=== PATIENT | female | born 1950 | race Caucasian/White ===

== ENCOUNTER 2021-01-21 14:15 | Emergency (ER) | payer MEDICARE, BC, SELFPAY ==
[2021-01-21] MEDS: Normal Saline 1,000 ML 1000 ML IV (14:20)
[2021-01-21 14:57] VITALS: BP 103/64; PULSE 66; RESP 18; TEMP 36.4; O2SAT 98
[2021-01-21] MEDS: Ondansetron 4 MG/2 ML VIAL IVP (15:10)
[2021-01-21 15:32] LABS: Abs Immature Grans 0.01 10^3/uL (0.0-0.06); Absolute Basophil Count 0.02 10^3/uL (0.0-0.2); Absolute Eosinophil Count 0.04 10^3/uL (0.0-0.7); Absolute Lymphocyte Count 1.05 10^3/uL (1.2-3.4); Absolute Monocyte Count 0.79 10^3/uL (0.1-0.8); Absolute Neutrophil Count 2.65 10^3/uL (1.2-6.7); Basophils % 0.4; Eosinophils % 0.9; HCT 37.7 % (36.0-46.0); HGB 12.5 g/dL (11.2-15.7); Immature Grans % 0.2; MCH 34.9 pg (27.0-33.0); MCHC 33.2 % (32.0-36.0); MCV 105.3 fL (80-95); MPV 10.4 fL (8.0-11.0); Monocytes % 17.3; Neutrophils % 58.2; Nucleated RBC 0 %; Platelet Count 147 10^3/uL (130-400); RBC 3.58 10^6/uL (3.93-5.22); RDW-SD 47.3 fL; WBC 4.56 10^3/uL (4.4-10.8)
[2021-01-21 15:34] LABS: Lactate 0.5 mmol/L (0.6-1.4)
--- NOTE | 2021-01-21 15:35 | ED.GENADUL_ITS ---
Discharge Plan Disposition Patient Disposition: HOME Condition: Stable Discharge Details Clinical Impression: Nausea & vomiting, Diarrhea Primary Care Provider: Rae,Local ED Provider: Neetu Garcia Home Meds and New Rx's Prescriptions: New ondansetron HCl [Zofran] 4 mg tablet 4 mg PO Q8H PRNQty: 10 RF: 0 Continued multivitamin Tablet 1 tab PO QAM RF: 0 niacin 50 mg Tablet 50 mg PO DAILY RF: 0 aspirin 81 mg Tablet,Delayed Release (Dr/Ec) 81 mg PO DAILY RF: 0 cyanocobalamin (vitamin B-12) [Vitamin B-12] 500 mcg Tablet 500 mcg PO DAILY RF: 0 omega-3 fatty acids Capsule 1,000 mg PO DAILY RF: 0 Calcium 600 + D(3) 600 mg calcium- 200 unit Capsule 1 cap PO DAILY RF: 0 red yeast rice 600 mg Capsule 600 mg PO DAILY RF: 0 vit A,C,P-Y2-oicg-vgz-pfs-lane 1,000 unit-300mg -100 unit-2 mg Tablet 1 tab PO DAILY RF: 0 ascorbic acid (vitamin C) [Vitamin C] 500 mg Tablet 500 mg PO DAILY RF: 0 Prevagen 1 tab PO DAILY RF: 0 Discharge Instructions Instructions: Acute Nausea and Vomiting (ED), Acute Diarrhea (ED) Additional Instructions: Zofran as needed for nausea and vomiting Gatorade, apple juice, Jell-O, clear liquid diet today, followed by bland diet tomorrow as tolerated Please return earlier with uncontrolled nausea, vomiting, diarrhea Talk to your doctor about performing colonoscopy as you have an area of narrowing on your CAT scan that should be reassessed Please bring the stool specimen back for evaluation I have listed a surgeon below which may schedule your colonoscopy Referrals: Curtis Raygoza MD [ CONSULTING PHYSICIAN] - Discharge Data Discharge Date/Time-TO BE ENTERED AT DEPARTURE: 01/21/21 19:40 Medical Decision Making <SIMIN Mahmood - Last Filed: 01/22/21 08:18> 70-year-old female history of cholecystectomy, full hysterectomy, presents for 2-day history of nausea, vomiting, diarrhea, now with pain around her umbilicus. Clinically she appears well, nontoxic. Will obtain IV access, obtain routine laboratory values including a lactate and obtain CT imaging of her abdomen and pelvis for further evaluation of her symptoms. Differential includes but not excluded to gastritis, small bowel obstruction diverticulitis, appendicitis, mesenteric adenitis, colitis, etc. given her HPI and examination, extremely low suspicion for ACS, will not pursue cardiac work-up. Will give IV fluid and Zofran and reassess. Lactate of 0.5. All other labs are pending at time of signout. Lab Data Lab results reviewed: Yes I reviewed the patient's lab results. Labs: PROCEDURE INFORMATION: Exam: XR Chest Exam date and time: 01/21/2021 2:10 PM Age: 61 years old Clinical indication: Other: Nausee TECHNIQUE: Imaging protocol: XR of the chest. Views: 1 view. COMPARISON: No relevant prior studies available. FINDINGS: Lungs: Unremarkable. No consolidation. Pleural spaces: Unremarkable. No pleural effusion. No pneumothorax. Heart/Mediastinum: Unremarkable. No cardiomegaly. Bones/joints: Unremarkable. IMPRESSION: No acute findings. <SIMIN Archer - Last Filed: 01/21/21 20:05> Care accepted in transfer from Regino Regalado PA-C at 1600 Patient appears symptomatically improved, she is resting comfortably in room without active vomiting her CT scan does show an area of narrowing in her colon, there is no evidence of bowel obstruction and patient's exam is inconsistent with bowel obstruction, she is able to move her bowels back she is having diarrhea Per radiologist interpretation She is on vomited since she is been in the emergency room She dehydrated, her BUN is 39 She is otherwise able to tolerate p.o. Given prescription for Zofran for home Return precautions discussed and patient expressed understanding Referral to surgery for colonoscopy in the outpatient setting HPI <SIMIN Mahmood - Last Filed: 01/22/21 08:18> General Mode of arrival: ambulatory . Date/Time Provider Initiated Documentation: 01/21/21 14:37 . Limitations to Documentation: no limitations . Information obtained by: patient . HPI Narrative: This is a 70-year-old female, past medical history that includes GERD, cholecystectomy, hysterectomy, presenting to the ER for 3-day history of nausea, vomiting, diarrhea, now with abdominal pain around her umbilicus over the past 8 hours, crampy in nature, 4 out of 10. Patient denies recent illness, sick contacts, bad food exposure. She denies fever, chest pain, shortness of breath, back pain, black tarry stools or bright red blood in her stools, dysuria or hematuria. Patient has not taken any vnxh-azm-hkitvfw medications for her symptoms. She has no additional questions or concerns at this time. Denies recent antibiotic use. Related Data Home Medications Medication Instructions Recorded Confirmed Calcium 600 + D(3) 1 cap PO DAILY 01/21/21 01/21/21 Prevagen 1 tab PO DAILY 01/21/21 ascorbic acid (vitamin C) [Vitamin 500 mg PO DAILY 01/21/21 01/21/21 C] aspirin 81 mg PO DAILY 01/21/21 01/21/21 cyanocobalamin (vitamin B-12) 500 mcg PO DAILY 01/21/21 01/21/21 [Vitamin B-12] multivitamin 1 tab PO QAM 01/21/21 01/21/21 niacin 50 mg PO DAILY 01/21/21 01/21/21 omega-3 fatty acids 1,000 mg PO DAILY 01/21/21 01/21/21 ondansetron HCl [Zofran] 4 mg PO Q8H PRN #10 tab 01/21/21 red yeast rice 600 mg PO DAILY 01/21/21 01/21/21 vit A,C,T-Y0-kegm-cni-tje-egxm 1 tab PO DAILY 01/21/21 01/21/21 Previous Rx's Medication Instructions Recorded ondansetron HCl [Zofran] 4 mg PO Q8H PRN #10 tab 01/21/21 Allergies Allergy/AdvReac Type Severity Reaction Status Date / Time No Known Allergies Allergy Unverified 01/21/21 15:02 General Stated Complaint: Nausea/Vomit/Diar PERRY: 3 Review of Systems <SIMIN Mahmood - Last Filed: 01/22/21 08:18> Constitutional Constitutional: Denies fever(s) ENT Ears, Nose, Mouth, and Throat: Denies neck pain Cardiovascular Cardiovascular: Denies chest pain and Denies dyspnea Respiratory Respiratory: Denies cough and Denies dyspnea Gastrointestinal Gastrointestinal: Reports abdominal pain, Reports diarrhea, Reports nausea and Reports vomiting Genitourinary Genitourinary: Denies dysuria Musculoskeletal Musculoskeletal: Denies neck pain Integumentary/Breasts Skin/Breast: Denies rash PFSH <SIMIN Mahmood - Last Filed: 01/22/21 08:18> Social History Smoking/Tobacco Use Status: Never Smoking risk assessment performed?: Yes Alcohol Intake: never Drug use: Never Do you feel safe at home: Yes Do you feel safe in your relationship?: Yes Exam <SIMIN Mahmood - Last Filed: 01/22/21 08:18> Const General: cooperative, healthy appearing, comfortable and no acute distress Orientation: alert and awake [facility] Head: normal to inspection, normocephalic and atraumatic Mouth: moist mucous membranes abnormal (Slightly dry) Eyes General: appearance normal, both eyes and all related structures Conjunctivae: conjunctivae normal Neck Neck: normal visual inspection, full ROM, trachea midline and supple Resp Effort & Inspection: normal respiratory effort and able to speak in complete sentences Auscultation: clear to auscultation bilaterally Cardio Rate: regular rate Rhythm: regular rhythm GI Inspection: normal to inspection Palpation: soft, not firm, no guarding, no pulsatile masses and tender (Mild around the umbilicus) not at McBurney's point and with no rebound tenderness Auscultation: normal bowel sounds Back/Spine/Pelvis Back: No back tenderness Skin General skin exam: no rashes or lesions noted Neuro General: patient alert, patient awake, moves all extremities and no focal motor deficits Cognition: normal cognition Speech: speech normal Gait: normal gait Sensory Exam: no sensory deficits noted Extrem General: normal to inspection, full ROM and capillary refill normal Psych Appearance: grossly normal Mental Status: mental status grossly normal Course <SIMIN Mahmood - Last Filed: 01/22/21 08:18> Vital Signs Vital signs: Vital Signs Temperature 36.4 C L 01/21/21 14:57 Pulse 66 01/21/21 14:57 Respiratory Rate 18 01/21/21 14:57 Blood Pressure 103/64 01/21/21 14:57 Pulse Oximetry 98 01/21/21 14:57 Temperature 36.4 C L 01/21/21 14:57 Temperature Source Temporal Artery Scan 01/21/21 14:57 Pulse 66 01/21/21 14:57 Respiratory Rate 18 01/21/21 14:57 Respiratory Effort Non-Labored 01/21/21 15:01 Blood Pressure 103/64 01/21/21 14:57 Blood Pressure Position Supine 01/21/21 14:57 Pulse Oximetry 98 01/21/21 14:57 Oxygen Delivery Method Room Air 01/21/21 14:57 Oxygen Flow Rate 0 01/21/21 14:57 Pain Level 4 01/21/21 14:57 Sign Out <SIMIN Mahmood - Last Filed: 01/22/21 08:18> Sign Out Data: Sign Out Comment: Nausea, vomiting, diarrhea x3 days, umbilicus pain today. Awaiting laboratory values and CT imaging Last updated by Regino Regalado PA at 01/21/21 15:53
--- NOTE | 2021-01-21 15:45 | DI.CT_ITS ---
Exam(s) CT ABDOMEN PELVIS W EXAM: CT ABDOMEN PELVIS W CLINICAL HISTORY: N/V, umbilicus. TECHNIQUE: Imaging Protocol: Axial computed tomography images with coronal and sagittal reformatted images were created and reviewed CONTRAST MATERIAL: Intravenous: Omnipaque 350 Contrast volume:100 ml Oral: yes / no COMPARISON: No exams were available for comparison FINDINGS: ABDOMEN: Lung Bases: Normal where visualized. Small hiatal hernia. Liver: Normal density. Small posterior cyst. Gallbladder and biliary tract: Status post cholecystectomy. No radiodense calculus or dilation. Pancreas: Normal density, no abnormal calcifications or inflammatory process. Spleen: Normal. Kidneys: Normal size, contour and axis. Nonobstructing stone mid right kidney. No obstructive uropat hy. No masses seen. Adrenal glands: No masses seen. Abdominal Aorta: Abdominal portion non-dilated. Dauu-fc-lqmumpww atherosclerotic changes. Branch ves sels patent. PELVIS: Bladder: No gross wall thickening. No calculi.No focal mass. Bowel: Colon and distal ileum mildly distended and fluid-filled. Distal colon small amount of fecal material. Probable contraction mid descending colon. Appendix normal. Peritoneal cavity: No ascites, collection or mesenteric inflammatory response. Bones: Mild compression of the superior endplate of L3 which appears old. Facet joint degenerative c hanges and degenerative disc changes also present. Reproductive organs: Status post hysterectomy. Lymph nodes: Unremarkable. Impression: Mildly fluid-filled colon without evidence of wall thickening. No evidence of obstruction. Probable area of focal contraction in the descending colon. RADIATION DOSE DELIVERED: 836.59mGy.cm Total DLP DATA REPOSITORY: All CT scans at this facility are submitted to the National Radiology Data Registry (NRDR) Dose Index Registry (DIR) with the [employer] ([employer]). RADIATION OPTIMIZATION: All CT scans at this facility use at least one of these dose optimization te chniques: automated exposure control; mA and/or kV adjustment per patient size (includes targeted exa ms where dose is matched to clinical indication); or iterative reconstruction.
[2021-01-21 15:59] LABS: Diff Comment RBC Morph Reviewed; Macrocytosis 1+; Polychromasia Present
[2021-01-21 16:04] LABS: ALT 34 U/L (14-59); AST 29 U/L (15-37); Albumin 3.4 g/dL (3.4-5.0); Alkaline Phosphatase 70 U/L (46-116); Anion Gap 5.6 mmol/L (3-11); BUN 39 mg/dL (7-18); Bilirubin, Total 0.5 mg/dL (0.2-1.0); CO2 29.4 mmol/L (21.0-32.0); Calcium 8.4 mg/dL (8.5-10.1); Chloride 104 mmol/L (98-107); Glucose 79 mg/dL (74-106); Lipase 102 U/L (73-393); Potassium 3.5 mmol/L (3.5-5.1); Sodium 139 mmol/L (136-145); Total Protein 6.7 g/dL (6.4-8.2)
[2021-01-21 16:40] LABS: Bilirubin Negative (Negative); Blood Trace-intact (Negative); Clarity Clear (Clear); Glucose Negative (Negative); Ketones Negative (Negative); Leukocyte Esterase Negative (Negative); Nitrite Negative (Negative); Specific Gravity 1.015 (1.005-1.025); Urobilinogen 0.2 EU/dL (Up TO 0.2); pH 6.5 (5-8)
[2021-01-21 16:59] LABS: Epithelial Cells Few HPF (Negative); RBC 0-2 HPF (0-2); WBC 0-2 HPF (0-5)
[2021-01-21 17:00] LABS: Bacteria Negative HPF (Negative); C & S Indicated? No; Casts 0-2 Hyaline LPF (Negative); Crystals Negative HPF (Negative); Mucus Negative (Negative)
[2021-01-21] MEDS: Omnipaque 350 MG/ML 100 ML BTL IJ (17:24)
--- NOTE | 2021-01-21 17:58 | DI.VRAD_ITS ---
PROCEDURE INFORMATION: Exam: CT Abdomen And Pelvis With Contrast Exam date and time: 01/21/2021 3:46 PM Age: 70 years old Clinical indication: Nausea and vomiting; Prior surgery TECHNIQUE: Imaging protocol: Computed tomography of the abdomen and pelvis with contrast. COMPARISON: No relevant prior studies available. FINDINGS: Lungs: Minimal dependent subsegmental atelectasis. Mediastinal space: Small hiatal hernia. Liver: Benign-appearing hepatic cyst. No hepatic masses. Gallbladder and bile ducts: Cholecystectomy. Pancreas: No ductal dilation. No masses. Spleen: No splenomegaly or focal lesions. Adrenal glands: No mass. Kidneys and ureters: Nonobstructive right nephrolithiasis. No renal masses or hydronephrosis bilaterally. Stomach and bowel: Short segment of wall thickening associated with narrowing of the colonic lumen, proximal right colon. No convincing colitis. No significant diverticular disease. No focal pathology in the small bowel. Appendix: No evidence of appendicitis. Intraperitoneal space: No free air. No significant fluid collection. Vasculature: No abdominal aortic aneurysm. Lymph nodes: No significantly enlarged lymph nodes. Urinary bladder: The urinary bladder is distended. No urinary bladder wall thickening. Reproductive: Hysterectomy. Bones/joints: Nonacute appearing moderate compression deformity of L3. Mild degenerative appearing anterolisthesis L4 over L5. Degenerative changes in the spine. The bones are demineralized. No acute fracture or subluxation. Soft tissues: No suspicious lesions. Other findings: Elevated left hemidiaphragm. IMPRESSION: 1. No acute findings. 2. Short segment of wall thickening associated with narrowing of the colonic lumen, proximal right colon. Could be due to peristalsis however a short segment of malignancy can also this appearance and follow-up is recommended. 3. Incidental findings as described. Dictated and Authenticated by: Nikki Kauffman MD. Ordering:ADIN Lacy MD
[2021-01-21] MEDS: Lactated Ringers 1,000 ML 500 ML IV (18:03)
[2021-01-21 18:56] VITALS: BP 124/76; PULSE 80; RESP 14
== END 2021-01-21 19:40 | disposition home or self-care (01) ==
PROVIDERS: Physician Assistant; Emergency Provider Physician Assistant
DX: R11.2 Nausea with vomiting, unspecified (principal); R19.7 Diarrhea, unspecified; R93.3 Abnormal findings on diagnostic imaging of other parts of digestive tract; E86.0 Dehydration; R10.33 Periumbilical pain
CPT/HCPCS: 36415; 80053; 83690; 96361; 96374; 99285; 74177; 81003; 81015; 83605; 85025; 99284; J2405; J3490

== ENCOUNTER → 2021-01-30 11:01 | Outpatient (BNVA) | payer MEDICARE, BC, SELFPAY | PROVIDERS: Visit Provider Surgery | DX: R11.2 Nausea with vomiting, unspecified (principal); R19.7 Diarrhea, unspecified; R93.3 Abnormal findings on diagnostic imaging of other parts of digestive tract | CPT/HCPCS: 99213 ==